=== PATIENT | male | born 1965 | race Hispanic/Latino ===

== ENCOUNTER 2018-01-30 07:06 | Day surgery (SDC) | payer MEDICAID ==
[2018-01-22 12:32] VITALS: BMI 37.3
[2018-01-30] MEDS ORDERED: Dexamethasone 4 mg/1 ml ONE (07:41)
[2018-01-30] MEDS ORDERED: ceFAZolin IV 1 gm in Dextrose 1 GM/50 ML BAG IVPB ONE (07:41)
[2018-01-30] MEDS ORDERED: Lidocaine/Epinephrine 1% 1:100000 10 ML IJ ONE (07:41)
[2018-01-30] MEDS ORDERED: EPINEPHrine 1:1000 Nasal Sol(30mL) ONE (07:42)
[2018-01-30] MEDS ORDERED: Oxymetazoline 0.05% Nasal Spray (30 ml) NS ONE (07:42)
[2018-01-30] MEDS ORDERED: Acetaminophen-Codeine 300/30 mg Tab PO PRN (08:43)
[2018-01-30] MEDS ORDERED: Dextrose 5%/0.45% NS 1,000 ML IV SCH (08:45)
[2018-01-30] MEDS ORDERED: Propofol 10 mg/ml Inj (20 ML) ONE ×2 (08:58→08:59)
[2018-01-30] MEDS ORDERED: Midazolam 2 MG/2 ML VIAL ONE (08:58)
[2018-01-30] MEDS ORDERED: Succinylcholine Chloride 20 mg/ml Syr (5 ml) IV ONE (09:01)
[2018-01-30] MEDS ORDERED: Atropine 0.4 mg/ml Inj (1 mL) ONE (09:11)
[2018-01-30] MEDS ORDERED: Lactated Ringer's 1,000 ML IV SCH (09:30)
[2018-01-30 10:02] VITALS: PULSE 81
[2018-01-30] MEDS: HYDROmorphone 0.5 mg/0.5 ml ISec IVP PRN ×2 (10:06→10:10)
[2018-01-30] MEDS ORDERED: HYDROmorphone 0.5 mg/0.5 ml ISec ONE (10:06)
[2018-01-30 11:00] VITALS: BP 110/70; RESP 18; TEMP 98; O2SAT 98
--- NOTE | 2018-01-30 13:27 | OP ---
PROCEDURE DATE: 01/30/2018 PREOPERATIVE DIAGNOSIS: Right nasal mass. POSTOPERATIVE DIAGNOSIS: Right nasal mass. PROCEDURE: Endoscopic right nasal mass biopsy. SIGNIFICANT FINDINGS: Right nasal mass. DESCRIPTION OF PROCEDURE: The patient was brought into the room, placed in supine position, anesthesia was initiated through an ET tube. Adrenaline-soaked pledgets were inserted into the nasal cavity, remained there for 5 minutes and removed. The patient was draped in the usual manner. The 0-degree scope was inserted into the nasal cavity. Right nasal mass was noted. Biopsy was taken and bleeding was controlled using adrenaline-soaked pledgets. The scope was removed. The patient was taken off anesthesia and taken to the recovery room in stable manner. Salomon Szymanski MD
== END 2018-01-30 11:36 | disposition home or self-care (01) ==
LOC: C.SDS 07:06
PROVIDERS: ATTEND Otolaryngology
DX: J34.9 Unspecified disorder of nose and nasal sinuses (principal)
CPT/HCPCS: 30100; 88305; J0461; J0690; J1170; J2250; J2704; J3010